=== PATIENT | male | born 1985 | race Caucasian/White ===

== ENCOUNTER 2017-02-24 12:21 | Emergency (ER) | payer OTHER ==
[2017-02-24 12:46] VITALS: RESP 18; O2SAT 97
--- NOTE | 2017-02-24 14:45 | UCPHY ---
H & P Time Seen by Provider: 02/24/17 14:27 Patient Type: New HPI/ROS: Patient has a sore throat. He describes this as moderate in intensity. He reported that he had the symptoms for 1 week without any other associated symptoms. He has mild improvement from [id number] analgesics with no other exacerbating factors. He has associated mild ear pressure. ROS: No high fevers or chills. No other constitutional symptoms. HEENT: No drainage from the ears. No diminished hearing. No change in his voice. Pulmonary: No cough. GI: No vomiting. Integumentary: No skin rash. 7 point ROS is otherwise negative. Past Medical/Surgical History: Otherwise healthy Smoking Status: Never smoked Physical Exam: Physical Exam Vital signs are normal. General: No acute distress HEENT: Nose: Clear discharge bilaterally. No sinus tenderness to percussion. Ears: External canals and tympanic membranes are clear with no erythema or abnormal findings bilaterally. Oropharynx: Mild erythema erythema. No exudates. No dysphonia. No drooling or stridor. Eyes: Pupils equal and react to light. Extraocular motions are intact. Neck: Supple with no meningismus. No lymphadenopathy Lungs: Clear to auscultation bilaterally with no rales, rhonchi or wheeze. No respiratory distress. Cardiac: Regular rate and rhythm with no murmur gallop or rub Skin: No rash or pallor. Neuro: Alert with no focal deficits noted. Initial differential diagnosis: Viral versus strep pharyngitis Constitutional: Initial Vital Signs Temperature (C) 37 C 02/24/17 12:44 Heart Rate 89 02/24/17 12:44 Respiratory Rate 18 02/24/17 12:44 Blood Pressure 135/96 H 02/24/17 12:44 O2 Sat (%) 97 02/24/17 12:44 O2 Delivery Mode Room Air Allergies/Adverse Reactions: No Known Allergies Allergy (Unverified 02/24/17 12:44) Home Medications: Medication Instructions Recorded Mupirocin 02/24/17 Medical Decision Making ED Course/Re-evaluation: Rapid strep is negative I counseled the patient regarding viral pharyngitis. Departure - Departure Disposition: Home, Routine, Self-Care Clinical Impression: Viral pharyngitis Condition: Good Instructions: Pharyngitis (ED) Additional Instructions: Diagnosis: Viral pharyngitis Plan: Drink plenty fluids Ibuprofen Tylenol for pain as needed Gargle salt water Symptoms should improve over the next 3-5 days. Referrals: OUT,OF STATE [Other] - As per Instructions - PQRS PQRS Measurement: na
[2017-02-24 15:09] VITALS: BP 132/82; PULSE 74; TEMP 98.6
== END 2017-02-24 15:06 | disposition home or self-care (01) ==
LOC: CED 12:21
DX: J02.8 Acute pharyngitis due to other specified organisms (principal)
CPT/HCPCS: 87880-PO; G0463-PO